=== PATIENT | male | born 1950 | race Caucasian/White ===

== ENCOUNTER 2022-02-07 16:27 | Emergency (ER) | payer OTHER ==
[~2022-02-07] VITALS: Ht 180.3 cm; Wt 93.4 kg
[~2022-02-07 16:27] MED LIST: ALPR0.5T8 PO; AMLO1TAB15 PO; ATEN-166 PO; CALC-469 PO; CALC-740 PO; CHOL400D6 PO; ERGO400C2 PO; EZET1TAB35 PO; FENO145T PO; HYDR-4037 PO; IMIP25TA6 PO; MINO2.5T PO; PRED5TAB PO; RANI300T7 PO; SEVE800T8 PO; VIT1TABL44 PO
[2022-02-07 16:29] VITALS: BP_SYST 148
--- NOTE | 2022-02-07 16:40 | NUR ---
Patient triaged and placed in waiting room. VSS and patient appears in no acute distress at this time. Accompanied by FAMILY, awaiting available bed, and MD notified of need for MSE.
--- NOTE | 2022-02-07 21:25 | NUR ---
Patient to ER bed de souza 1 to gown for evaluation. Side rails up. Report given to Dorothy HARTLEY.
[2022-02-07] MEDS ORDERED: TRAM50TA2 PO (22:13)
[2022-02-07] MEDS ORDERED: traMADol HCL HCL 50 MG TABLET (ULTRAM) PO ONE (22:15)
--- NOTE | 2022-02-07 22:16 | NUR ---
ER at bedside examining patient.
[2022-02-07 22:28] VITALS: BP_SYST 132
[2022-02-07] MEDS ORDERED: traMADol HCL HCL 50 MG TABLET (ULTRAM) ONE (22:28)
--- NOTE | 2022-02-07 22:28 | NUR ---
Patient given written and verbal discharge instructions and verbalizes understanding. ER MD discussed with patient the results and treatment provided. Patient in stable condition. ID arm band removed. Rx of TRAMADOL given. Patient educated on pain management and to follow up with PMD. Pain Scale 0/10 Opportunity for questions provided and answered. Medication side effect fact sheet provided.
== END 2022-02-07 22:28 | disposition home or self-care (01) ==
LOC: SED 16:27
DX: S83.411A Sprain of medial collateral ligament of right knee, initial encounter (principal); I10 Essential (primary) hypertension; Z79.899 Other long term (current) drug therapy; X58.XXXA Exposure to other specified factors, initial encounter; Y93.89 Activity, other specified; Y92.89 Other specified places as the place of occurrence of the external cause; Y99.8 Other external cause status
CPT/HCPCS: 73564; 73590-TC; 99284